=== PATIENT | female | born 1995 | race Caucasian/White ===

== ENCOUNTER 2018-05-17 08:28 | Emergency (ER) | payer OTHER ==
[~2018-05-17] VITALS: Ht 157.5 cm; Wt 68.9 kg
[~2018-05-17 08:28] MED LIST: AMOX1TAB12 PO; PRILOSEC10 MG PO; ZANTAC300 MG PO
[2018-05-17] MEDS ORDERED: TOBRADEX EYE DR10 ML OP (09:16)
[2018-05-17] MEDS ORDERED: TESSALON PERLE100 MG PO (09:16)
== END 2018-05-17 09:42 | disposition home or self-care (01) ==
LOC: ER 08:28
DX: H10.89 Other conjunctivitis (principal); R05 Cough

== ENCOUNTER 2018-11-23 07:29 | Emergency (ER) | payer OTHER ==
[~2018-11-23] VITALS: Ht 157.5 cm; Wt 68.0 kg
[~2018-11-23 07:29] MED LIST changes: +TESSALON PERLE100 MG PO; +TOBRADEX EYE DR10 ML OP
== END 2018-11-23 13:14 | disposition home or self-care (01) ==
LOC: ER 07:29
DX: K58.9 Irritable bowel syndrome, unspecified (principal)

== ENCOUNTER 2019-01-07 09:03 | Emergency (ER) | payer OTHER ==
[~2019-01-07] VITALS: Ht 157.5 cm; Wt 77.1 kg
== END 2019-01-07 11:33 | disposition home or self-care (01) ==
LOC: ER 09:03
DX: O26.891 Other specified pregnancy related conditions, first trimester (principal); S13.4XXA Sprain of ligaments of cervical spine, initial encounter; V49.9XXA Car occupant (driver) (passenger) injured in unspecified traffic accident, initial encounter; Y93.89 Activity, other specified; Y92.488 Other paved roadways as the place of occurrence of the external cause; Y99.8 Other external cause status; Z34.01 Encounter for supervision of normal first pregnancy, first trimester

== ENCOUNTER 2019-01-12 13:51 | Outpatient (CLI) | payer OTHER | END 2019-01-12 14:03 | disposition home or self-care (01) | LOC: LAB 13:51 | DX: Z34.91 Encounter for supervision of normal pregnancy, unspecified, first trimester (principal) ==

== ENCOUNTER 2019-05-03 12:12 | Outpatient (CLI) | payer OTHER | END 2019-05-03 20:32 | disposition home or self-care (01) | LOC: OBS/DEL 12:12 | DX: O26.852 Spotting complicating pregnancy, second trimester (principal); O26.842 Uterine size-date discrepancy, second trimester; O26.892 Other specified pregnancy related conditions, second trimester; N93.0 Postcoital and contact bleeding ==

== ENCOUNTER 2019-05-31 08:44 | Emergency (ER) | payer OTHER ==
[~2019-05-31] VITALS: Ht 157.5 cm; Wt 88.9 kg
[2019-05-31] MEDS ORDERED: PRENATAL 19 TA1 EACH (08:57)
== END 2019-05-31 12:52 | disposition home or self-care (01) ==
LOC: ER 08:44
DX: O26.893 Other specified pregnancy related conditions, third trimester (principal); B96.0 Mycoplasma pneumoniae [M. pneumoniae] as the cause of diseases classified elsewhere; Z34.03 Encounter for supervision of normal first pregnancy, third trimester

== ENCOUNTER 2019-07-13 11:34 | Inpatient (IN) | payer OTHER ==
[~2019-07-13] VITALS: Ht 157.5 cm; Wt 93.4 kg
[~2019-07-13 11:34] MED LIST changes: +PRENATAL 19 TA1 EACH
[2019-07-13] MEDS ORDERED: FOLIC ACID20 MG PO (11:50)
[2019-07-13] MEDS ORDERED: IRON325 MG PO (11:50)
== END 2019-07-15 18:36 | disposition home or self-care (01) | DRG 807 ==
LOC: LDR 11:34 → OB/GYN 11:34 → LDR 16:06 → OB/GYN 07-14 00:09
PROVIDERS: ADMIT Specialist
PROC: 10E0XZZ Delivery of Products of Conception, External Approach (ICD-10-PCS; principal; 2019-07-13)
PROC: 10907ZC Drainage of Amniotic Fluid, Therapeutic from Products of Conception, Via Natural or Artificial Opening (ICD-10-PCS; 2019-07-13)
PROC: 3E033VJ Introduction of Other Hormone into Peripheral Vein, Percutaneous Approach (ICD-10-PCS; 2019-07-13)
PROC: 4A1HXCZ Monitoring of Products of Conception, Cardiac Rate, External Approach (ICD-10-PCS; 2019-07-13)
DX: O80 Encounter for full-term uncomplicated delivery (principal); Z37.0 Single live birth; Z3A.38 38 weeks gestation of pregnancy